=== PATIENT | female | born 1990 | race Caucasian/White ===

== ENCOUNTER 2017-03-01 19:47 | Emergency (ER) | payer SELFPAY ==
[~2017-03-01] VITALS: Ht 152.4 cm; Wt 46.9 kg
[~2017-03-01 19:47] MED LIST: ADVIL,NUPRIN,M200 MG PO; BACTRIM,SEPT1 TABLET PO; CIPRO500 MG PO; CLEOCIN300 MG PO; KEFLEX500 MG PO; METHADONE10 MG PO; METHADONE10 MG/1 M1 PO; NAPROSYN500 MG PO; POLYTRIM EYE DR10 ML RIGHT EYE; PROAIR HFA8.5 GM IH; TORADOL10 MG PO; TYLENOL REGULA325 MG PO; VIBRAMYCIN100 MG PO; XANAX1 MG PO; XANAX2 MG PO
[2017-03-01 22:08] LABS: HEMATOCRIT 37.6 % (36.0-46.0); MCH 29.1 PG (29.0-34.0); MCHC 34.3 G/DL (30.0-36.0); MCV 84.7 FL (83-99); MEAN PLAT.VOLUME 9.5 uM^3 (9.5-12.4); PLATELET COUNT 326 K/uL (156-360); RBC DIS.WIDTH-CV 12.2 % (11.8-14.6); RBC DIS.WIDTH-SD 37.1 % (39-53); RED BLOOD COUNT 4.44 M/uL (3.80-5.20); WHITE BLOOD COUNT 8.6 K/uL (4.1-10.2)
[2017-03-01 22:17] LABS: CHLORIDE 101 mEq/L (99-109); POTASSIUM 4.5 mEq/L (3.7-5.4); SODIUM 136 mEq/L (136-147)
[2017-03-01 22:18] LABS: GLUCOSE 101 mg/dL (70-99)
[2017-03-01 22:20] LABS: ANION GAP 15 MEQ/L (2-14)
[2017-03-01 22:22] LABS: GFR ESTIMATE (CALCULATED) > 59 mL/min/
[2017-03-01 22:23] LABS: UREA NITROGEN (BUN) 9 mg/dL (9-23)
[2017-03-02 00:22] VITALS: BP 131/78
== END 2017-03-02 00:09 | disposition left against medical advice (07) ==
LOC: EME 19:47
PROVIDERS: Physician Assistant Medical
DX: L98.8 Other specified disorders of the skin and subcutaneous tissue (principal); M79.652 Pain in left thigh; F19.10 Other psychoactive substance abuse, uncomplicated; F17.200 Nicotine dependence, unspecified, uncomplicated
CPT/HCPCS: 80048; 83605; 85027; 87040; 99281; 99285